=== PATIENT | female | born 1960 | race Caucasian/White ===

== ENCOUNTER 2019-11-03 00:16 | Day surgery (SDC) | payer BC, SELFPAY ==
[2019-10-31 13:23] VITALS: BMI 22.6
[2019-11-03 06:35] VITALS: BP 108/62; PULSE 66; RESP 20; TEMP 36.4; O2SAT 99
[2019-11-03] MEDS: LACTATED RINGERS 1,000 ML 150 ML IV CONT (07:01)
--- NOTE | 2019-11-03 07:02 | WPDANESEPPF ---
Anes - Initial Pre Proc Eval Procedure: Operation Date: 11/03/19 07:30 Proposed Procedures p Screening Colonoscopy - Landon Alfaro MD Date/Time: 11/03/19 07:02 Surgeon: Landon Alfaro MD Pre Op Diagnosis: neoplasm screening Patient Data Age: 59 Gender: F Height: 5 ft 3 in Weight: 59 kg Last Vital Signs Temp 36.4 C L 11/03/19 06:35 Pulse 66 11/03/19 06:35 Resp 20 11/03/19 06:35 BP 108/62 11/03/19 06:35 Pulse Ox 99 11/03/19 06:35 Allergies Allergy/AdvReac Type Severity Reaction Status Date / Time codeine Allergy Unknown hives Verified 11/03/19 06:37 SURGICAL TAPE Allergy Mild RED Uncoded 11/03/19 06:37 PAINFULL SKIN. TAPE CHAN Home Medications Medication Instructions Recorded Confirmed Type levothyroxine [Synthroid] 88 mcg PO DAILY 10/31/19 11/03/19 History simvastatin 20 mg PO DAILY 10/31/19 11/03/19 History Patient hx anesthesia problems: none Family hx anesthesia problems: none PMFSH Past Medical History Medical History (Updated 11/03/19 @ 07:02 by Melo Avalos MD) Hyperlipidemia Hypothyroidism Family History Family History Mother Diabetes mellitus Hypertension Family history of cardiovascular disease Family history of malignant neoplasm of breast in first degree relative Father Hypertension Social History Social History Smoking status: Never smoker Anes - Eval Final PreProcedure Day of Procedure 11/03/19 07:02 Patient weight: normal Heart: regular rate and rhythm Lungs: clear to auscultation Airway: Mallampati scale class II Neurological: alert and oriented Last oral intake: >/= 8 hours ASA classification: II Emergent: no Anesthetic plan: proceed Anesthesia type and monitoring: general GIVS and standard monitoring Informed Consent: The patient's anesthetic plan and its attendant risks and benefits were discussed with the patient/family/POA. Questions were solicited and answers provided to the satisfaction of the patient/family/POA.
--- NOTE | 2019-11-03 07:37 | P.CONGI_ITS ---
Assessment and Plan Additional Plan This is a 59-year-old white female patient seen in evaluation at the request of Dr. Dave Allen. Patient presents for screening colonoscopy. Her current weight appetite bowel movements are normal. She denies any blood in her stools. Family history noncontributory. She denies abdominal pain. Weight has remained stable. Past medical history noncontributory. Medications include Synthroid and simvastatin. She states an allergy to codeine. Physical exam reveals her to be alert. Oriented x3. HEENT exam unremarkable. Lungs are clear to auscultation and percussion. Heart is without murmur or extra sounds. Abdominal exam bowel sounds are present soft nontender with no hepatosplenomegaly. Digital external rectal exam is normal. Impression 1. Neoplasia screening advised because of her age. Plan is for screening colonoscopy. GI Consult Note Consult date/time: 11/03/19 07:37 HPI: Twila Canales is a 59 year old female [facility] Past Medical History Medical History (Updated 11/03/19 @ 07:02 by Melo Avalos MD) Hyperlipidemia Hypothyroidism Family History Family History Mother Diabetes mellitus Hypertension Family history of cardiovascular disease Family history of malignant neoplasm of breast in first degree relative Father Hypertension Social History Social History Smoking status: Never smoker Meds Home Medications and Allergies Home Medications Medication Instructions Recorded Confirmed Type levothyroxine [Synthroid] 88 mcg PO DAILY 10/31/19 11/03/19 History simvastatin 20 mg PO DAILY 10/31/19 11/03/19 History Allergies Allergy/AdvReac Type Severity Reaction Status Date / Time codeine Allergy Unknown hives Verified 11/03/19 06:37 SURGICAL TAPE Allergy Mild RED Uncoded 11/03/19 06:37 PAINFULL SKIN. TAPE CHAN Vital Signs Vital Signs - 24 hr 11/03/19 06:35 Temperature 36.4 C L Pulse Rate 66 Respiratory Rate 20 Blood Pressure 108/62 Pulse Oximetry 99
[2019-11-03 07:56] VITALS: BP 112/69; PULSE 62; RESP 20; O2SAT 99
[2019-11-03 08:06] VITALS: BP 120/75; PULSE 60; RESP 18; O2SAT 100
[2019-11-03 08:16] VITALS: BP 136/86; PULSE 64; RESP 18; O2SAT 100
== END 2019-11-03 08:45 | disposition home or self-care (01) ==
PROVIDERS: PCP Emergency Medicine; Visit Provider Internal Medicine Gastroenterology
PROC: 0DJD8ZZ Inspection of Lower Intestinal Tract, Via Natural or Artificial Opening Endoscopic (ICD-10-PCS; CPT 45378; principal; 2019-11-03 07:30)
DX: Z12.11 Encounter for screening for malignant neoplasm of colon (principal); K64.8 Other hemorrhoids; E78.5 Hyperlipidemia, unspecified; E03.9 Hypothyroidism, unspecified
CPT/HCPCS: 45378; J2704; J7120

== ENCOUNTER 2020-01-19 08:25 | Outpatient (CLI) | payer BC, SELFPAY ==
--- NOTE | ~2020-01-19 | MM_ITS ---
EXAMINATION: MM screening [facility] BI w [facility] HISTORY: Screening mammogram TECHNIQUE: Craniocaudal and mediolateral oblique 3-D tomosynthesis images were obtained and synthetic 2-D images were generated. CAD analysis was submitted and interpreted. COMPARISON: No prior mammogram is available for comparison at this institution. BREAST PARENCHYMAL COMPOSITION: There are scattered areas of fibroglandular density. FINDINGS: There is no evidence of suspicious mass, calcification, or architectural distortion to sugg est malignancy in either breast. There has been no suspicious interval change. IMPRESSION: 1. No mammographic evidence of malignancy. 2. Recommend routine screening mammography in one year. BI-RADS Category 1: Negative Reviewed, dictated and finalized at location A.
== END 2020-01-19 08:26 | disposition home or self-care (01) ==
LOC: ANHIMG 08:28
PROVIDERS: PCP Emergency Medicine; Visit Provider Obstetrics & Gynecology
DX: Z12.31 Encounter for screening mammogram for malignant neoplasm of breast (principal)
CPT/HCPCS: 77063; 77067

== ENCOUNTER 2021-02-12 08:03 | Outpatient (CLI) | payer BC, SELFPAY ==
--- NOTE | ~2021-02-12 | MM_ITS ---
EXAMINATION: MM screening [facility]en[facility] BI w [facility] HISTORY: Screening TECHNIQUE: Craniocaudal and mediolateral oblique 3-D tomosynthesis images were obtained and synthetic 2-D images were generated. CAD analysis was submitted and interpreted. COMPARISON: Comparison to multiple prior studies sequentially, with oldest reviewed study dated 10/16. BREAST PARENCHYMAL COMPOSITION: There are scattered areas of fibroglandular density. FINDINGS: There is no evidence of suspicious mass, calcification, or architectural distortion to sugg est malignancy in either breast. There has been no suspicious interval change. IMPRESSION: 1. No mammographic evidence of malignancy. 2. Recommend routine screening mammography in one year. BI-RADS Category 1: Negative Reviewed, dictated and finalized at location A.
== END 2021-02-12 08:04 | disposition home or self-care (01) ==
LOC: ANHIMG 08:07
PROVIDERS: PCP Emergency Medicine; Visit Provider Emergency Medicine
DX: Z12.31 Encounter for screening mammogram for malignant neoplasm of breast (principal)
CPT/HCPCS: 77063; 77067